=== PATIENT | female | born 1940 | race Caucasian/White ===

== ENCOUNTER 2021-05-23 09:36 | Emergency (ER) | payer MEDICARE, BC ==
[~2021-05-23] VITALS: Ht 154.9 cm; Wt 96.1 kg
[2021-05-23 09:53] VITALS: BP 138/90
[2021-05-23] MEDS ORDERED: CEPH250T PO (10:43)
== END 2021-05-23 10:50 | disposition home or self-care (01) ==
LOC: ER 09:38
DX: L03.115 Cellulitis of right lower limb (principal); I80.9 Phlebitis and thrombophlebitis of unspecified site; Z88.2 Allergy status to sulfonamides; Z79.2 Long term (current) use of antibiotics; Z90.49 Acquired absence of other specified parts of digestive tract
CPT/HCPCS: 93971; 99284

== ENCOUNTER 2022-03-02 09:59 | Day surgery (SDC) | payer MEDICARE, BC ==
[2022-03-01 11:08] LABS: BASOPHILS # (AUTO) 0.1 X10'3 (0-0.2); BASOPHILS % (AUTO) 1.1 % (0-1); EOSINOPHILS # (AUTO) 0.2 X10'3 (0-0.9); EOSINOPHILS % (AUTO) 2.8 % (0-6); HEMATOCRIT 42.1 % (35.0-45.0); LYMPHOCYTES # (AUTO) 2.5 X10'3 (1.1-4.8); LYMPHOCYTES % (AUTO) 38.3 % (21-51); MEAN CORPUSCULAR HGB CONC 33.2 g/dL (33.0-36.5); MEAN CORPUSCULAR VOLUME 102.2 FL (78-98); MEAN PLATELET VOLUME 7.8 FL (7.4-10.4); MONOCYTES # (AUTO) 0.6 X10'3 (0-0.9); MONOCYTES % (AUTO) 9.8 % (2-12); NEUTROPHILS # (AUTO) 3.1 X10'3 (1.8-7.7); PLATELET COUNT 298 X10'3 (140-440); RED BLOOD COUNT 4.12 X10'6 (4.20-5.60); RED CELL DISTRIBUTION WIDTH 13.2 % (11.5-14.5); WHITE BLOOD COUNT 6.6 X10'3 (4.5-11.0)
[2022-03-01 11:15] LABS: ALBUMIN 3.4 G/DL (3.4-5.0); ANION GAP 8 (8-16); BLOOD UREA NITROGEN 17 MG/DL (7-18); BUN/CREATININE RATIO 14.3 (6.6-38.0); CALCIUM 9.5 MG/DL (8.5-10.1); CHLORIDE 106 MMOL/L (99-107); CREATININE 1.19 MG/DL (0.40-0.90); GLUCOSE 110 MG/DL (70-104); SODIUM 142 MMOL/L (135-145); TOTAL CARBON DIOXIDE 28.5 MMOL/L (24-32); eGFR 43 ML/MIN
[~2022-03-02] VITALS: Ht 154.9 cm; Wt 94.0 kg
[2022-03-02] VITALS (11 sets, daily range): BP systolic 96–155; BP diastolic 49–91
[~2022-03-02 09:59] MED LIST: APIX5TAB3 PO; ASPI81TA53 PO; METO-411 PO; PANT40TA54 PO; ROSU40TA22 PO
[2022-03-02] MEDS ORDERED: FLEC50TA28 PO (10:28)
[2022-03-02] MEDS ORDERED: ASPI81TA52 PO (10:28)
[2022-03-02] MEDS ORDERED: APIX5TAB3 PO (10:28)
[2022-03-02] MEDS ORDERED: atropine 0.1mg/ml 10ml syringe IV ONE (11:10)
[2022-03-02] MEDS ORDERED: MIDAZolam 1mg/ml 10ml vial IV ONE (11:10)
[2022-03-02] MEDS ORDERED: amiodarone 150mg/dext, iso-os 100 ML IV ONE (11:10)
[2022-03-02] MEDS ORDERED: LORazepam 0.5 MG tablet PO ONE (11:10)
[2022-03-02] MEDS ORDERED: diphenhydrAMINE 25mg capsule PO ONE (11:10)
[2022-03-02] MEDS ORDERED: morphine 10mg/ml inj. IV ONE (11:10)
== END 2022-03-02 14:50 | disposition home or self-care (01) ==
LOC: SSTAY O 09:59
PROVIDERS: ATTEND Internal Medicine Cardiovascular Disease
DX: I48.19 Other persistent atrial fibrillation (principal); I25.2 Old myocardial infarction; I25.10 Atherosclerotic heart disease of native coronary artery without angina pectoris; E78.5 Hyperlipidemia, unspecified; I10 Essential (primary) hypertension; I48.0 Paroxysmal atrial fibrillation; Z95.5 Presence of coronary angioplasty implant and graft; Z79.899 Other long term (current) drug therapy; Z98.890 Other specified postprocedural states
CPT/HCPCS: 36415; 80048; 85025; 92960; 93005; J2250; J2274; J7030; A4620

== ENCOUNTER 2022-03-15 06:57 | Outpatient (CLI) | payer MEDICARE, BC ==
[~2022-03-15 06:57] MED LIST changes: +ASPI81TA52 PO; -ASPI81TA53 PO; +FLEC50TA28 PO
== END 2022-03-15 23:59 | disposition home or self-care (01) ==
LOC: RT 06:57
PROVIDERS: ATTEND Internal Medicine Cardiovascular Disease
DX: R06.02 Shortness of breath (principal); Z79.899 Other long term (current) drug therapy
CPT/HCPCS: 94010; 94727; 94729

== ENCOUNTER 2022-10-07 18:25 | Emergency (ER) | payer MEDICARE, BC ==
[~2022-10-07] VITALS: Ht 154.9 cm; Wt 87.0 kg
[2022-10-07 18:32] VITALS: BP 176/82
[2022-10-07] MEDS ORDERED: HYDR-3965 PO ×2 (21:03→21:13)
[2022-10-07] MEDS ORDERED: IBUP-1985 PO ×2 (21:03→21:13)
[2022-10-07] MEDS ORDERED: HYDROcodone/acetaminophen 5mg/325mg tablet PO ONE (21:05)
== END 2022-10-07 21:17 | disposition home or self-care (01) ==
LOC: ER 18:25
DX: M54.16 Radiculopathy, lumbar region (principal); M54.42 Lumbago with sciatica, left side; E78.00 Pure hypercholesterolemia, unspecified; I10 Essential (primary) hypertension; Z88.2 Allergy status to sulfonamides
CPT/HCPCS: 99284

== ENCOUNTER 2024-05-28 06:10 | Day surgery (SDC) | payer MEDICARE, BC ==
[2024-05-27 11:11] LABS: BASOPHILS % (AUTO) 0.8 % (0-1); EOSINOPHILS # (AUTO) 0.2 X10'3 (0-0.9); EOSINOPHILS % (AUTO) 3.5 % (0-6); HEMATOCRIT 42.8 % (35.0-45.0); HEMOGLOBIN 14.4 g/dl (12.0-16.0); LYMPHOCYTES # (AUTO) 2.1 X10'3 (1.1-4.8); LYMPHOCYTES % (AUTO) 37.4 % (21-51); MEAN CORPUSCULAR HEMOGLOBIN 36.6 PG (27.0-31.0); MEAN CORPUSCULAR HGB CONC 33.7 g/dL (33.0-36.5); MEAN CORPUSCULAR VOLUME 108.6 FL (78-98); MEAN PLATELET VOLUME 8.5 FL (7.4-10.4); MONOCYTES # (AUTO) 0.8 X10'3 (0-0.9); MONOCYTES % (AUTO) 13.9 % (2-12); NEUTROPHILS # (AUTO) 2.5 X10'3 (1.8-7.7); NEUTROPHILS % (AUTO) 44.4 % (42-75); PLATELET COUNT 263 X10'3 (140-440); RED BLOOD COUNT 3.93 X10'6 (4.20-5.60); RED CELL DISTRIBUTION WIDTH 13.1 % (11.5-14.5); WHITE BLOOD COUNT 5.7 X10'3 (4.5-11.0)
[2024-05-27 11:36] LABS: ALBUMIN 3.2 G/DL (3.4-5.0); ANION GAP 6 (8-16); BLOOD UREA NITROGEN 15 MG/DL (7-18); BUN/CREATININE RATIO 11.4 (10.0-20.0); CALCIUM 8.8 MG/DL (8.5-10.1); CHLORIDE 109 MMOL/L (99-107); CREATININE 1.32 MG/DL (0.40-0.90); GLUCOSE 104 MG/DL (70-104); POTASSIUM 4.1 MMOL/L (3.5-5.1); SODIUM 143 MMOL/L (135-145); eGFR 38 ML/MIN
[2024-05-27 13:38] LABS: APTT 26 SECONDS (22-32); PROTHROMBIN TIME 10.7 SECONDS (9.0-12.0)
[~2024-05-28] VITALS: Ht 154.9 cm; Wt 92.6 kg
[2024-05-28] VITALS (12 sets, daily range): BP systolic 103–178; BP diastolic 48–68; PULSE 56–65; RESP 16; TEMP 97.8; O2SAT 94–98
[~2024-05-28 06:10] MED LIST changes: +IBUP-1985 PO; -ROSU40TA22 PO; +ROSU40TA89 PO
[2024-05-28] MEDS ORDERED: ceFAZolin 2gm in dextrose, iso 50 ML IV ONE (06:30)
[2024-05-28] MEDS ORDERED: LEVO125T68 PO (07:17)
[2024-05-28] MEDS ORDERED: POTA10CA95 PO (07:17)
[2024-05-28] MEDS ORDERED: EMPA10TA (07:17)
[2024-05-28] MEDS ORDERED: LOSA25TA41 PO (07:17)
[2024-05-28] MEDS ORDERED: ALBU18HF2 (07:17)
[2024-05-28] MEDS ORDERED: AMI200T PO (07:17)
[2024-05-28] MEDS ORDERED: CALC-1370 PO (07:18)
[2024-05-28] MEDS ORDERED: MULT-1180 (07:23)
[2024-05-28] MEDS ORDERED: METO25TA6 PO (07:23)
[2024-05-28] MEDS ORDERED: OMEG1CAP46 PO (07:23)
[2024-05-28] MEDS ORDERED: fentaNYL/PF 50MCG/1 ML 2ML syringe ONE ×2 (07:30→09:51)
[2024-05-28] MEDS ORDERED: iohexol 350 MG/ML 50ML vial IV ONE (07:30)
[2024-05-28] MEDS ORDERED: LIDOcaine 1% W/epiNEPHrine 1:100,000 20ml vial ONE (07:30)
[2024-05-28] MEDS ORDERED: midazolam 1 mg/ML 2ml injection ONE ×2 (07:30→08:55)
[2024-05-28] MEDS ORDERED: ceFAZolin 1000mg inj ONE (07:30)
[2024-05-28] MEDS ORDERED: diphenhydrAMINE 50 mg/ml inj ONE (08:50)
[2024-05-28] MEDS ORDERED: HYDROcodone/acetaminophen 5mg/325mg tablet PO PRN (10:30)
[2024-05-28] MEDS: vancomycin/NS 1 GM ADD-VANTAGE 250 ML X 1 DOSE IV ONE (11:55)
[2024-05-28] MEDS: HYDROcodone/acetaminophen 10/325mg tab PO PRN (11:57)
[2024-05-28] MEDS ORDERED: CEPH-585 PO (12:04)
== END 2024-05-28 16:05 | disposition home or self-care (01) ==
LOC: SSTAY O 06:10
PROVIDERS: ATTEND Internal Medicine Cardiovascular Disease
DX: I49.5 Sick sinus syndrome (principal); I25.10 Atherosclerotic heart disease of native coronary artery without angina pectoris; I10 Essential (primary) hypertension; I48.0 Paroxysmal atrial fibrillation; E78.5 Hyperlipidemia, unspecified; Z79.01 Long term (current) use of anticoagulants; Z79.899 Other long term (current) drug therapy; Z98.890 Other specified postprocedural states
CPT/HCPCS: 33208; 36415; 71046; 80048; 85025; 85610; 85730; 93005; 99152; 99153; A4565; A6258; A6402; C1785; C1898; J0690; J1200; J2250; J3010; J3370; J3490; J7030; Z7610; A6449; Q9967

== ENCOUNTER 2025-02-04 10:29 | Outpatient (CLI) | payer MEDICARE, BC ==
[~2025-02-04] VITALS: Ht 154.9 cm; Wt 91.2 kg
[~2025-02-04 10:29] MED LIST changes: +ALBU18HF2; +AMIO200T76 PO; -ASPI81TA52 PO; +CALC-1370 PO; +EMPA10TA; -FLEC50TA28 PO; -IBUP-1985 PO; +LEVO125T68 PO; +LOSA25TA41 PO; -METO-411 PO; +METO25TA6 PO; +MULT-1180; +OMEG1CAP46 PO; +POTA10CA95 PO
[2025-02-04 11:00] LABS: TOTAL HEMOGLOBIN 15.5 G/dl (12.0-16.0)
[2025-02-04 11:05] VITALS: PULSE 66; RESP 16; O2SAT 96
[2025-02-04] MEDS: albuterol 2.5 MG/3 ML nebule NEB ONE (11:38)
[2025-02-04 11:49] VITALS: PULSE 66; RESP 18
--- NOTE | 2025-02-04 17:05 | PROCEDURE NOTE - Respiratory ---
Procedure Note-Respiratory Providers to Copies To 1: NICKIE BRIONES MD Procedure Name: This is a complete pulmonary function study dated February 04, 2025. Hemoglobin measurement was done as part of the study. Spirometry measurements: Both the forced vital capacity and the FEV1 measurements are normal. The FEV1 ratio is slightly elevated. The flow rate measurements are normal. After inhaled bronchodilator was given, there is no appreciable change in the flow volume curve. Lung volume measurements: The total lung capacity measurement is in the normal range. Lung diffusion measurement: The DLCO measurement is normal. The KVO measurement is slightly elevated, but the alveolar volume measurement is slightly depressed. It is noted that the hemoglobin is in the normal range. Airway resistance measurement: The airway resistance is normal. Overall conclusion: This is a normal pulmonary function study. There is no evidence for COPD based on this study. There is no evidence for amiodarone pulmonary toxicity. We have a previous study for comparison dated March of 2022. Over the past three years the FEV1 and the forced vital capacity remained stable or have perhaps improved slightly. The DLCO measurement has slightly improved. Should this patient remain on amiodarone it is recommended that follow-up pulmonary function testing be considered in approximately one year. SAMANTHA HERNANDEZ MD Feb 04, 2025 17:05
== END 2025-02-04 23:59 | disposition home or self-care (01) ==
LOC: RT 10:29
PROVIDERS: ATTEND Specialist
DX: J44.9 Chronic obstructive pulmonary disease, unspecified (principal)
CPT/HCPCS: 85018; 94060; 94727; 94729; A6402; A6449